=== PATIENT | male | born 1945 ===

== ENCOUNTER → 2025-04-16 13:03 | Outpatient (BNVA) | payer MEDICARE, SELFPAY | PROVIDERS: PCP Nurse Practitioner Family; Visit Provider Podiatrist Foot & Ankle Surgery | DX: M79.671 Pain in right foot (principal); M79.672 Pain in left foot; L60.0 Ingrowing nail; L03.032 Cellulitis of left toe | CPT/HCPCS: 73630; 99203 ==

== ENCOUNTER → 2025-04-27 12:55 | Outpatient (BNVA) | payer MEDICARE, SELFPAY | PROVIDERS: PCP Nurse Practitioner Family; Visit Provider Podiatrist Foot & Ankle Surgery | DX: L60.0 Ingrowing nail (principal); L03.032 Cellulitis of left toe | CPT/HCPCS: 99213 ==